=== PATIENT | female | born 1960 | race Caucasian/White ===

== ENCOUNTER → 2020-07-29 | Day surgery (SDC) | payer OTHER ==
[~2020-07-29] VITALS: Ht 175.3 cm; Wt 99.8 kg
[~2020-07-29] MED LIST: ARMOUR THYROID60 MG PO; CLONAZEPAM0.5 MG PO; NORCO 5-325 TA1 EACH PO; PERCOCET 5-3251 EACH PO; PRINIVIL10 MG PO; TRAZODONE 50MG50 MG PO; VITAMIN B-121000 MC1 PO; VITAMIN D310 MC3 PO
[2020-07-29 07:55] LABS: HCT 35.8 % (37.0-47.0); HGB 11.9 g/dl (12.5-16.0); MCH 30.5 pg (25.0-31.0); MCHC 33.2 g/dL (32.0-36.0); MCV 91.8 fL (78.0-100.0); RBC 3.9 M/uL (4.20-5.40); RDW 12.1 % (11.5-14.0); WBC 3.9 K/uL (4.0-10.5)
[2020-07-29 08:49] LABS: ALBUMIN 3.5 g/dL (3.4-5.0); BILIRUBIN - TOTAL 0.5 mg/dL (0.2-1.0); BUN/CREAT RATIO (CALC) 24.7 RATIO; CREATININE 0.81 mg/dL (0.51-0.95); GLOBULIN (CALCULATION) 2.8 g/dL; POTASSIUM 4.5 mmol/L (3.5-5.1); TOTAL PROTEIN 6.3 g/dL (6.4-8.2)
== END | disposition home or self-care (01) ==
LOC: FAS 06:58
PROVIDERS: Orthopaedic Surgery
DX: M75.121 Complete rotator cuff tear or rupture of right shoulder, not specified as traumatic (principal); M19.011 Primary osteoarthritis, right shoulder; M75.51 Bursitis of right shoulder; I10 Essential (primary) hypertension; E03.9 Hypothyroidism, unspecified; Z79.899 Other long term (current) drug therapy
CPT/HCPCS: 36415; 71045; 80053; 93005; C1713; J0171; J0690; J0735; J2250; J2405; J2704; J2795; J3010; J7120

== ENCOUNTER → 2021-03-18 | Day surgery (SDC) | payer OTHER ==
[~2021-03-18] VITALS: Ht 175.3 cm; Wt 99.8 kg
[~2021-03-18] MED LIST changes: +SYNTHROID112 MCG PO
[2021-03-18 08:12] LABS: HCT 36.1 % (37.0-47.0); HGB 11.6 g/dl (12.5-16.0); MCH 30.2 pg (25.0-31.0); MCHC 32.1 g/dL (32.0-36.0); MPV 9.9 fL (6.0-9.5); RBC 3.84 M/uL (4.20-5.40); RDW 12.8 % (11.5-14.0); WBC 4.4 K/uL (4.0-10.5)
[2021-03-18 08:33] LABS: ALBUMIN 3.3 g/dL (3.4-5.0); BILIRUBIN - TOTAL 0.6 mg/dL (0.2-1.0); CREATININE 0.79 mg/dL (0.51-0.95); POTASSIUM 4.5 mmol/L (3.5-5.1); TOTAL PROTEIN 6.3 g/dL (6.4-8.2)
== END | disposition home or self-care (01) ==
LOC: FAS 06:59
PROVIDERS: Orthopaedic Surgery
DX: M75.101 Unspecified rotator cuff tear or rupture of right shoulder, not specified as traumatic (principal)
CPT/HCPCS: 36415; 80053; C1713; J0171; J0690; J1453-JG; J2250; J2405; J2550; J2704; J2795; J3010; J7120